=== PATIENT | female | born 1945 | race African-American/Black ===

== ENCOUNTER 2018-07-23 20:25 | Emergency (ER) | payer MEDICARE ==
[~2018-07-23] VITALS: Ht 172.7 cm; Wt 108.0 kg
[~2018-07-23 20:25] MED LIST: ALBUTEROL2.5 MG/3 M INH; COZAAR50 MG ORAL; FLONASE1 SPRAYS NASAL; LOPRESSOR HCT1 EAC3 ORAL; MAXZIDE 37.5 M1 EAC1 PO
[2018-07-23 20:51] VITALS: BP 127/71
--- NOTE | 2018-07-23 20:56 | NUR ---
ED Nurse Note: pt walked in due to cough, cold and sore throat x 3 days. pt respritory rate is within normal limits. pt breath sounds do not sound adventitous. breath sounds are clear biladerally. pt O2 sat is 99%. pt is alert and oriented times 4 and is able to walk with steady gait.
[2018-07-23] MEDS ORDERED: Albuterol ud Inhalation HHN ONE (21:00)
[2018-07-23] MEDS ORDERED: Ipratropium 0.02% Inh Soln 2.5ml UD HHN ONE (21:00)
--- NOTE | 2018-07-23 21:01 | Emergency Room Report ---
History of Present Illness General Chief Complaint: Flu Like Symptoms Source: Patient Present Illness HPI Patient presents with 3 days of upper respiratory symptomatology. She has a sore throat and a cough that's been pestering her. She denies chest pain. She' s been taking Robitussin-DM but she still been kept awake at night by the cough. She's also using her inhaler. She has herself wheezing. Cough is nonproductive. She does not get flu vaccinations as she reacts to the shots. No dyspnea on exertion, chest pain, nausea, vomiting, diarrhea, skin rashes, headache, muscle aches. Prior history of hypertension and asthma. Allergies: Coded Allergies: PENICILLINS (Verified Allergy, Severe, 04/06/15) Dairy (Verified Allergy, Unknown, 07/23/18) Patient History Past Medical History: see triage record Social History: Denies: smoking, alcohol use, drug use Social History Narrative here with son Last Menstrual Period: 3 decades Now: No : 3 Para: 3 Reviewed Nursing Documentation: PMH: Agreed; PSxH: Agreed Nursing Documentation-PMH Hx Hypertension: Yes Hx Asthma: Yes Review of Systems All Other Systems: negative except mentioned in HPI Physical Exam Vital Signs Date Time Temp Pulse Resp B/P (MAP) Pulse Ox O2 Delivery O2 Flow Rate FiO2 07/23/18 20:34 99.9 84 16 133/84 94 Room Air 07/23/18 20:51 99 Sp02 EP Interpretation: reviewed, abnormal - Interpreted as slightly low by me General Appearance: well appearing, no apparent distress, GCS 15 Head: normocephalic, atraumatic Eyes: bilateral eye normal inspection, bilateral eye PERRL ENT: hearing grossly normal, normal voice, moist mucus membranes, pharyngeal erythema Neck: full range of motion, supple Respiratory: no respiratory distress, speaking full sentences, wheezing, expiration Cardiovascular #1: regular rate, rhythm Cardiovascular #2: 2+ radial (R) Gastrointestinal: normal inspection, overweight Musculoskeletal: digits/nails normal, gait/station normal, normal range of motion, no calf tenderness Neurologic: alert, oriented x3, normal gait, grossly normal Psychiatric: mood/affect normal Skin: no rash Medical Decision Making Diagnostic Impression: Primary Impression: URI (upper respiratory infection) Qualified Codes: J06.9 - Acute upper respiratory infection, unspecified Additional Impression: Bronchospasm ER Course Patient presents with 3 days of illness with cough and wheezing and sore throat. Is a exam is against strep pharyngitis. We need to exclude cardiac disease as well as influenza. Exam is against pulmonary embolus. Patient will be treated with prednisone and breathing treatments. An influenza titer is obtained. EKG no injury. Influenza titer negative. Urinalysis negative. Patient improved with treatment. No medical emergency and patient is stable for outpatient observation and treatment. Laboratory Tests Test 07/23/18 20:53 Urine Color Pale yellow Urine Appearance Clear Urine pH 6.5 (4.5-8.0) Urine Specific [place] 1.010 (1.005-1.035) Urine Protein Negative (NEGATIVE) Urine Glucose (UA) Negative (NEGATIVE) Urine Ketones Negative (NEGATIVE) Urine Blood 1+ (NEGATIVE) H Urine Nitrite Negative (NEGATIVE) Urine Bilirubin Negative (NEGATIVE) Urine Urobilinogen Normal MG/DL (0.0-1.0) Urine Leukocyte Esterase Negative (NEGATIVE) Urine RBC 2-4 /HPF (0 - 2) H Urine WBC 0-2 /HPF (0 - 2) Urine Squamous Epithelial Cells Occasional /LPF Urine Bacteria Occasional /HPF (NONE) Microbiology Date/Time Source Procedure Growth Status 07/23/18 20:53 Nasal Nares Influenza Types A,B Antigen (BRUNO) - Final Complete EKG Diagnostic Results Rate: normal Rhythm: NSR ST Segments: no acute changes - incomplete RBBB Rhythm Strip Diag. Results EP Interpretation: yes Rhythm: NSR, no PVC's, no ectopy Last Vital Signs Date Time Temp Pulse Resp B/P (MAP) Pulse Ox O2 Delivery O2 Flow Rate FiO2 07/23/18 21:51 98.0 71 20 130/68 99 Room Air 07/23/18 21:40 21 Status: improved Disposition: HOME, SELF-CARE Condition: Improved Scripts Guaifenesin/Codeine Phos* (ROBITUSSIN AC*) 118 Ml Liquid 5 ML ORAL Q6H PRN for For Cough, #90 ML 0 Refills Prov: Leory Fletcher MD 07/23/18 Prednisone* (PREDNISONE*) 20 Mg Tablet 40 MG ORAL DAILY, #6 TAB Prov: Leroy Fletcher MD 07/23/18 Leroy Fletcher MD Jul 23, 2018 21:01
[2018-07-23 21:06] LABS: APPEARANCE,URINE CLEAR; BILIRUBIN, URINE NEGATIVE (NEGATIVE); COLOR,URINE PALE YELLOW; GLUCOSE, URINE (UA) NEGATIVE (NEGATIVE); KETONES,URINE NEGATIVE (NEGATIVE); LEUKOCYTE ESTERASE ,URINE NEGATIVE (NEGATIVE); NITRITE,URINE NEGATIVE (NEGATIVE); PH,URINE 6.5 (4.5-8.0); PROTEIN,URINE NEGATIVE (NEGATIVE); UROBILINOGEN,URINE NORMAL MG/DL (0.0-1.0)
[2018-07-23] MEDS ORDERED: PREDNISONE20 MG ORAL (21:35)
[2018-07-23] MEDS ORDERED: GUAIFENESIN-CO118 M1 ORAL (21:35)
[2018-07-23 21:51] VITALS: BP 130/68
--- NOTE | 2018-07-23 21:52 | NUR ---
ER DISCHARGE NOTE: Patient is cleared to be discharged per ERMD, pt is aox4, on room air, with stable vital signs. pt was given dc and prescription instructions, pt was able to verbalize understanding, pt id band without complications. pt is able to ambulate with steady gait. pt took all belongings.
--- NOTE | 2018-07-24 16:50 | Cardiology Report ---
APPROVED REPORT EKG Measurement Heart [id number] Sinus rhythm with occasional premature ventricular complexes and premature atrial complexes Incomplete right bundle branch block Borderline ECG
== END 2018-07-23 21:55 | disposition home or self-care (01) ==
LOC: EMR 21:35
DX: J06.9 Acute upper respiratory infection, unspecified (principal); J98.01 Acute bronchospasm; I10 Essential (primary) hypertension; J45.909 Unspecified asthma, uncomplicated; Z88.0 Allergy status to penicillin
CPT/HCPCS: 81003; 86710; 93005; 94640; 99284; J7512

== ENCOUNTER 2020-06-16 17:00 | Emergency (ER) | payer MEDICARE ==
[~2020-06-16] VITALS: Ht 172.7 cm; Wt 89.8 kg
[~2020-06-16 17:00] MED LIST changes: +ASPIRIN81 M3 PO; +CIPROFLOXACIN500 M2 ORAL; +FLAGYL500 MG ORAL; +GUAIFENESIN-CO118 M1 ORAL; +HYDROCHLOROTH12.5 MG ORAL; +LOSARTAN POTASS50 MG ORAL; +METOPROLOL SUCC25 MG ORAL; +PREDNISONE20 MG ORAL; +VENTOLIN HFA18 GM INH
[2020-06-16 17:11] VITALS: BP 129/74
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
[2020-06-16] MEDS ORDERED: IBUPROFEN600 M1 ORAL (17:40)
[2020-06-16] MEDS ORDERED: ROBAXIN-500MG ORAL (17:40)
[2020-06-16] MEDS ORDERED: LIDODERM700 M1 TOPIC (17:40)
[2020-06-16 17:55] VITALS: BP 124/74
== END 2020-06-16 17:55 | disposition home or self-care (01) ==
LOC: EMR 17:26
DX: R25.2 Cramp and spasm (principal); S16.1XXA Strain of muscle, fascia and tendon at neck level, initial encounter; V43.62XA Car passenger injured in collision with other type car in traffic accident, initial encounter; Y92.410 Unspecified street and highway as the place of occurrence of the external cause; Z88.0 Allergy status to penicillin; I10 Essential (primary) hypertension; J45.909 Unspecified asthma, uncomplicated
CPT/HCPCS: 99282